=== PATIENT | female | born 2000 | race Caucasian/White ===

== ENCOUNTER 2020-03-24 16:01 | Emergency (ER) | payer SELFPAY ==
--- NOTE | ~2020-03-24 | XR_ITS ---
EXAMINATION: XR elbow RT min 3V DATE: 03/24/2020 16:38 INDICATION: Right elbow injury. TECHNIQUE: 4 views of right elbow were obtained. COMPARISON: None. FINDINGS: There is chronic posterior dislocation of radial head with respect to the capitellum with d eformity of the radial head. No acute fracture. Joint spaces are normal. There is an elbow joint effu aba. IMPRESSION: 1. Chronic dislocation of radiocapitellar joint. 2. Elbow joint effusion. Reviewed, dictated and finalized at location A.
--- NOTE | 2020-03-24 16:14 | ED.UPPEXIN ---
HPI - Extremity Injury (Upper) General Chief Complaint: Extremity Injury, Upper Stated Complaint: right elbow injury Time Seen by Provider: 03/24/20 16:20 Source: patient Mode of arrival: ambulatory Limitations: no limitations History of Present Illness HPI narrative: Iliana Hopkins is a 19 yo female with a PMH of bilateral congenital ulnar dislocation who comes after a fall 2 days ago from her bed and hit her right elbow on the concrete floor. Has difficulty supinating pronating. Pain is 3 or 4 out of 10 Related Data Home Medications Medication Instructions Recorded Confirmed No Home Medications 03/24/20 03/24/20 Allergies Allergy/AdvReac Type Severity Reaction Status Date / Time No Known Allergies Allergy Verified 03/24/20 16:40 Review of Systems Review of Systems: Narrative: CONSTITUTIONAL: Denies fever, chills, sweats. EYES: Denies visual changes, redness, discharge. ENT: Denies rhinorrhea, congestion, sore throat, otalgia. CARDIOVASCULAR: Denies chest pain, palpitations, edema. RESPIRATORY: Denies dyspnea, wheezing, cough GASTROINTESTINAL: Denies abdominal pain, nausea, vomiting, diarrhea. GENITOURINARY: Denies dysuria, hematuria, abnormal discharge SKIN: Denies rash or itching. NEUROLOGIC: Denies numbness, or focal weakness. PSYCHIATRIC: Denies anxiety or depression. Extremity: Right elbow pain PMFSH Past Medical History Medical History Congenital dislocation of elbow Family History Family History Other Hypertension Social History Social History (Updated 03/24/20 @ 16:39 by Khushi Murrieta CNP) Smoking packs per day: 0.5 Smoking cigarettes per day: 10.0 Smoking status: Current every day smoker Tobacco type: cigarettes Alcohol intake: current Comments At time of signature, I agree with nursing past medical, surgical, social and family history. There is no relevant family history pertinent to the presenting complaint. Exam Narrative: Exam Narrative: GENERAL: This is a well-nourished, well-developed patient, in mild distress. HEAD: normocephalic, atraumatic. EYES: Sclera clear/white. Vision is grossly intact. EARS: External ears normal, . Hearing grossly intact. NOSE: External nose normal without nasal discharge, nares without redness, no rhinorrhea. THROAT: Mucous membranes moist, posterior pharynx NECK: Neck supple, CARDIOVASCULAR: Regular rate and rhythm without murmurs, gallops, or rubs. RESPIRATORY: Clear to auscultation. Breath sounds equal bilaterally. No wheezes, rales, or rhonchi. GASTROINTESTINAL: Abdomen soft, non-tender, SKIN: warm, intact with no suspicious lesions or rash, good texture and turgor. NEURO: awake, alert, and oriented to person, place and time. There were no obvious focal neurologic abnormalities. Steady gait EXTREMITIES: Right elbow swelling, difficulty with supination pronation BACK: Nontender without deformity Course Course Emergency Course: Xray R elbow negative for fracture - toradol for pain, arm in sling, follow up with pcp. Toradol for pain Vital Signs Vital signs: Vital Signs Temperature 98.8 F 03/24/20 16:18 Pulse Rate 84 03/24/20 16:18 Respiratory Rate 18 03/24/20 16:18 Blood Pressure 125/68 03/24/20 16:18 Pulse Oximetry 100 03/24/20 16:18 Temperature 98.8 F 03/24/20 16:18 Pulse Rate 84 03/24/20 16:18 Respiratory Rate 18 03/24/20 16:18 Blood Pressure 125/68 03/24/20 16:18 Pulse Oximetry 100 03/24/20 16:18 MDM - Extremity Injury (Upper) Differential Diagnosis Differential diagnosis: Likely sprain and strain of wrist, fracture of wrist and other (fracture of R elbow) Lab Data Labs: EXAMINATION: XR elbow RT min 3V DATE: 03/24/2020 16:38 INDICATION: Right elbow injury. TECHNIQUE: 4 views of right elbow were obtained. COMPARISON: None. FINDINGS: There is chronic posterior
[2020-03-24 16:18] VITALS: BP 125/68; PULSE 84; RESP 18; TEMP 37.1; O2SAT 100
[2020-03-24] MEDS: KETOROLAC (*BKC) 60 MG/2 ML VIAL 30 MG IM (17:17)
== END 2020-03-24 17:43 | disposition home or self-care (01) ==
PROVIDERS: Emergency Provider Nurse Practitioner
DX: S50.01XA Contusion of right elbow, initial encounter (principal); F17.210 Nicotine dependence, cigarettes, uncomplicated; Q68.8 Other specified congenital musculoskeletal deformities; W06.XXXA Fall from bed, initial encounter
CPT/HCPCS: 73080; 96372; 99213; A4565; G0463; J1885

== ENCOUNTER → 2022-08-23 14:18 | Emergency (ER) | payer BC, SELFPAY | END | disposition left against medical advice (07) | LOC: EXPBETH 14:36 | PROVIDERS: Emergency Provider Nurse Practitioner Family | DX: Z53.21 Procedure and treatment not carried out due to patient leaving prior to being seen by health care provider (principal) | CPT/HCPCS: 99199 ==